=== PATIENT | female | born 1945 | race Caucasian/White ===

== ENCOUNTER → 2016-06-30 16:52 | Outpatient (CLI) | payer MEDICARE, OTHER ==
[2014-02-22 19:24] VITALS: BMI 26.7
[~2016-06-30 16:52] MED LIST: AMITRIPTYLINE H50 MG PO; BAYER CHEWABLE81 MG PO; EVISTA60 MG PO; HYDROCODON-ACE1 EAC9 PO; IMITREX100 MG PO; LOPRESSOR25 MG PO; PAROXETINE HCL10 MG PO; PLAVIX75 MG PO; PREVACID30 MG PO; REQUIP XL2 MG PO; TIAZAC/CARDIZE180 MG PO; TOBRADEX EYE DRO5 ML LEFT EYE; VALIUM5 MG PO
== END | disposition home or self-care (01) ==
LOC: D.MAMMO 14:00
DX: Z12.31 Encounter for screening mammogram for malignant neoplasm of breast (principal)

== ENCOUNTER → 2016-09-01 06:41 | Outpatient (CLI) | payer MEDICARE, OTHER ==
[2014-02-22 19:24] VITALS: BMI 26.7
== END | disposition home or self-care (01) ==
LOC: D.RAD 08-28 08:00
DX: K44.9 Diaphragmatic hernia without obstruction or gangrene (principal)

== ENCOUNTER → 2017-06-11 11:56 | Outpatient (CLI) | payer MEDICARE ==
[2014-02-22 19:24] VITALS: BMI 26.7
== END | disposition home or self-care (01) ==
LOC: D.CT 11:56
DX: K57.30 Diverticulosis of large intestine without perforation or abscess without bleeding (principal); R10.12 Left upper quadrant pain; R10.30 Lower abdominal pain, unspecified

== ENCOUNTER → 2017-07-01 08:12 | Outpatient (CLI) | payer MEDICARE ==
[2014-02-22 19:24] VITALS: BMI 26.7
== END | disposition home or self-care (01) ==
LOC: D.RAD 08:12
DX: K31.84 Gastroparesis (principal); K21.9 Gastro-esophageal reflux disease without esophagitis; Z98.890 Other specified postprocedural states

== ENCOUNTER 2017-07-05 12:58 | Day surgery (SDC) | payer MEDICARE ==
[~2017-07-05] VITALS: Ht 157.5 cm; Wt 71.8 kg
--- NOTE | ~2017-07-05 | OP ---
PATIENT NAME: ANITA RYDER MEDICAL RECORD: [id number] :45 LOCATION:D.OPS ADMISSION DATE: SURGEON: ANITA JORGE MD DATE OF OPERATION: 07/05/2017 PROCEDURE: EGD with balloon dilatation. ENDOSCOPIST: Anita Jorge MD SCOPE: An Olympus video gastroscope and a CRE Microvasive balloon from 26-51-Kixrmj. MEDICATIONS: For the procedure per TIVA. The patient was intubated for this procedure. INDICATIONS FOR THE PROCEDURE: Dysphagia. The patient's workup has included an upper GI with a KUB, which was done on 07/01/2017, this procedure was significant for a moderate hiatal hernia, otherwise unremarkable upper gastrointestinal examination. Of note, the patient has been having dysphagia and her upper GI and previous endoscopy findings are significant for an unraveling Kaley fundoplication, moderate-sized hiatal hernia. The patient had an attempted EGD on the of this month, but we were unable to proceed as she had had a copious amount of retained food in a moderate-sized hiatal hernia. The procedure was aborted and upper GI was done. This film in more detail as below demonstrates a normal esophagus with a normal caliber and normal contour. She does, however, have tertiary contractions. A moderate-size hiatal hernia was present. No significant stricture was seen, but the patient has a functional stricture due to the hiatal hernia with some shortening of the esophagus. She had no extrinsic compression other than the normal impression from the aortic knob, no mucosal or submucosal lesion was identified. She had no evidence of a significant filling defect. The contrast was noted to empty into the stomach without difficulty. A normal mucosal pattern was seen in the stomach. No contrast extravasation. The contrast then emptied into the first portion of the duodenum without difficulty with normal C-loop configuration was noted, normal duodenojejunal mucosa fold pattern was identified. TECHNIQUE: A 2.5 mm barium tablet was then administered and the patient was unable to swallow tablet and continued to cough up the tablet. An EGD with planned balloon dilatation will be done this date. FINDINGS: Informed consent was given. The patient was made comfortable with the above medications. After reaching an adequate level of sedation by slow IV push, the patient was placed on her left side. Of note, the patient was intubated for this procedure. The endoscope was advanced under direct visualization through the posterior pharyngeal area and advanced to the distal esophagus. A functional stricture was seen. We were able to traverse this area into a moderate-sized hiatal hernia and then proceeded through the gastric area to the antrum. No significant inflammation was seen involving the mucosa of the stomach. The duodenal bulb to the second portion was examined and again tissue was fairly normal in appearance. Only a minimal amount of inflammation was seen in the duodenum and also within the stomach and biopsies were not felt to be necessary. OPERATIVE REPORT [id number] ANITA RYDER After the inspection part of the EGD was completed, a CRE microvasive balloon was placed carefully into the stomach proper and the scope was positioned, so that the balloon would dilate the distal esophagus. We advanced the balloon to 57-Gibraltarian and held the balloon in place for 1 minute, no trauma was noted after removal of the balloon. We then reexamined the esophagus, hiatal hernia, all gastric mucosa, and the duodenal mucosa. No trauma or bleeding was seen. The scope was then withdrawn. IMPRESSION: 1. The patient with a functional stricture due to a moderate-sized hiatal hernia. This was seen in the chest and distal esophageal area was successfully dilated to 57-Gibraltarian without any trauma noted. Eventually, the patient will require a hiatal hernia repair and possibly another Kaley fundoplication. 2. Moderate-sized hiatal hernia. 3. Minimal gastritis. 4. Minimal duodenitis. PLAN: The patient should continue her present medications, avoid anti-inflammatory drugs, and follow reflux precautions stringently, both dietary and positional. We will ask her to return to clinic after her upcoming cruise for further discussion as we believe she likely will require a hiatal hernia repair and possibly another Kaley fundoplication. The patient's medications include Protonix 40 mg p.o. daily. TRANSINT:[id number] Voice Confirmation ID: [id number] DOCUMENT ID: [id number] ANITA JORGE MD CC: IRVING SWANN and MAXIME POWERS [id number] DICTATION DATE: 07/05/171713 TECHNICAL SALES ADVISOR: 07/05/172204 [facility] 07/05/17 [place] [id number] [place] [id number]
[2017-07-05] MEDS ORDERED: PROTONIX40 MG PO (14:07)
[2017-07-05] MEDS ORDERED: NEURONTIN 300300 MG PO (14:08)
[2017-07-05] MEDS ORDERED: ULTRAM50 MG PO (14:08)
[2017-07-05 14:18] VITALS: BP 128/72; Ht 157.5 cm; Wt 71.8 kg
[2017-07-05 14:49] LABS: HEMATOCRIT 33.6 % (36.0-48.0); HEMOGLOBIN 11.3 g/dL (12-16); MCH 28.3 pg (26.0-34.0); MCHC 33.6 g/dL (31.0-37.0); MEAN PLATELET VOLUME 11.4 fL (7.4-10.4); RDW 16.8 % (11.5-14.5)
== END 2017-07-05 18:45 | disposition home or self-care (01) ==
LOC: D.OPS 12:58
PROVIDERS: Internal Medicine Gastroenterology
DX: R13.10 Dysphagia, unspecified (principal); K22.2 Esophageal obstruction; K44.9 Diaphragmatic hernia without obstruction or gangrene; K29.70 Gastritis, unspecified, without bleeding; K29.80 Duodenitis without bleeding; Z01.812 Encounter for preprocedural laboratory examination

== ENCOUNTER 2018-08-26 18:25 | Inpatient (IN) | payer MEDICARE ==
[~2018-08-26 18:25] MED LIST changes: +CARDIZEM CD120 MG PO; +NEURONTIN 300300 MG PO; +PROTONIX40 MG PO; -REQUIP XL2 MG PO; +ROPINIROLE HCL2 MG PO; +ULTRAM50 MG PO
[2018-08-26 19:21] LABS: BASOPHILS 0.4 % (0-2); EOSINOPHILS 2.8 % (0-7); HEMATOCRIT 36.7 % (36.0-48.0); HEMOGLOBIN 12.3 g/dL (12-16); LYMPHOCYTES 27.1 % (15-50); MCH 28.6 pg (26.0-34.0); MCHC 33.5 g/dL (31.0-37.0); MCV 85.3 fL (80.0-100.0); MEAN PLATELET VOLUME 11.6 fL (7.4-10.4); MONOCYTES 6.5 % (2-11); NEUTROPHILS 63.2 % (40-80); WBC 5.4 10x3/uL (4.8-10.8)
[2018-08-26 19:26] LABS: PLATELET COUNT 197 10x3/uL (130-400)
[2018-08-26 19:35] LABS: ALBUMIN 3.5 g/dL (3.4-5.0); ALKALINE PHOSPHATASE 99 U/L (46-116); ALT (SGPT) 88 U/L (10-68); BILIRUBIN - TOTAL 0.31 mg/dL (0.2-1.3); CALC OSMOLALITY 281 mosm/kg (275-300); CHLORIDE - SERUM 105 mmol/L (98-107); CREATININE - SERUM 0.9 mg/dL (0.6-1.3); GLUCOSE 105 mg/dL (74-106); POTASSIUM - SERUM 3.5 mmol/L (3.5-5.1); SODIUM 142 mmol/L (136-145); UREA NITROGEN 9 mg/dL (7-18); eGFR NON AFRICAN AMERICAN 65 mL/min (90-120)
[2018-08-26 19:38] LABS: AMYLASE - SERUM 17 U/L (25-115); LIPASE 59 U/L (73-393); TROPONIN-I < 0.017 ng/mL (0.000-0.060)
[2018-08-26 22:36] LABS: APPEARANCE CLEAR (CLEAR); BILIRUBIN NEGATIVE (NEGATIVE); COLOR YELLOW (YELLOW); GLUCOSE NEGATIVE (NEGATIVE); KETONE MODERATE mg/dL (NEGATIVE); NITRITE NEGATIVE (NEGATIVE); PROTEIN NEGATIVE (NEGATIVE); UROBILINOGEN NORMAL (NORMAL)
[2018-08-26 22:38] LABS: BACTERIA FEW /hpf (NONE SEEN); EPITHELIAL CELLS OCC /hpf (0-5); WHITE CELLS - URINE 0-5 /hpf (0-5)
[2018-08-26 23:00] VITALS: BP 106/62
[2018-08-26 23:26] LABS: CKMB 0.9 U/L (0.0-3.6)
[2018-08-27] MEDS ORDERED: PHENERGAN25 M1 PO (00:49)
[2018-08-27] MEDS ORDERED: MOBIC7.5 MG (00:50)
[2018-08-27 01:32] VITALS: BP 109/59; BMI 26.7
[2018-08-27 04:57] VITALS: BP 98/57
[2018-08-27 09:06] VITALS: BP 110/63
[2018-08-27 09:16] LABS: BASOPHILS 0.3 % (0-2); EOSINOPHILS 5.6 % (0-7); HEMATOCRIT 35.5 % (36.0-48.0); HEMOGLOBIN 11.6 g/dL (12-16); LYMPHOCYTES 29.2 % (15-50); MCH 28.2 pg (26.0-34.0); MCHC 32.7 g/dL (31.0-37.0); MCV 86.2 fL (80.0-100.0); MEAN PLATELET VOLUME 10.9 fL (7.4-10.4); MONOCYTES 8.1 % (2-11); NEUTROPHILS 56.8 % (40-80); PLATELET COUNT 168 10x3/uL (130-400); RBC 4.12 10x6/uL (4.00-5.40); RDW 16.1 % (11.5-14.5)
[2018-08-27 09:23] LABS: ANION GAP 7.5 mmol/L (8-16); CALCIUM 8.4 mg/dL (8.5-10.1); CARBON DIOXIDE 31.3 mmol/L (21.0-32.0); CREATININE - SERUM 0.8 mg/dL (0.6-1.3); POTASSIUM - SERUM 3.8 mmol/L (3.5-5.1)
[2018-08-27 09:25] LABS: WBC 3.6 10x3/uL (4.8-10.8)
[2018-08-27 13:53] VITALS: BP 133/69
[2018-08-27 15:10] VITALS: BMI 26.7
[2018-08-27 16:24] VITALS: BP 105/58
[2018-08-27 20:25] VITALS: BP 117/71
[2018-08-28 00:25] VITALS: BP 122/71
[2018-08-28 03:41] VITALS: BP 130/77
[2018-08-28 05:17] LABS: BASOPHILS 0.3 % (0-2); HEMATOCRIT 34.4 % (36.0-48.0); HEMOGLOBIN 11.2 g/dL (12-16); LYMPHOCYTES 34.2 % (15-50); MCH 28.1 pg (26.0-34.0); MCHC 32.6 g/dL (31.0-37.0); MCV 86.2 fL (80.0-100.0); MEAN PLATELET VOLUME 11.8 fL (7.4-10.4); MONOCYTES 9.2 % (2-11); NEUTROPHILS 48.3 % (40-80); PLATELET COUNT 179 10x3/uL (130-400); RBC 3.99 10x6/uL (4.00-5.40); RDW 16.2 % (11.5-14.5); WBC 3.3 10x3/uL (4.8-10.8)
[2018-08-28 05:31] LABS: ANION GAP 9.9 mmol/L (8-16); CALCIUM 8.3 mg/dL (8.5-10.1); CREATININE - SERUM 0.8 mg/dL (0.6-1.3); POTASSIUM - SERUM 3.9 mmol/L (3.5-5.1)
[2018-08-28 09:08] VITALS: BP 126/72
[2018-08-28] MEDS ORDERED: LEVAQUIN750 MG PO (10:42)
[2018-08-28] MEDS ORDERED: FLAGYL500 MG PO (10:42)
--- NOTE | 2018-09-01 10:49 | MORECARE ---
CASE MANAGEMENT DISCHARGE SUMMARY PATIENT: RAFAEL RYDER UNIT: [id number] ADM DATE: 08/26/18 AGE: 73 : 45 SEX: F ROOM/BED: D[facility] AUTHOR: DIXON DEE PHYSICIAN: REFERRING PHYSICIAN: KEV JORDAN MD DATE OF SERVICE: 09/01/18 Discharge Plan Patient Name: RAFAEL RYDER Facility: [facility]:[place] : 1945 Planned Disposition: Anticipated Discharge Date: Discharge Date: 08/28/2018 Expected LOS: 0 Initial Reviewer: [email or web address] Initial Review Date: 09/01/2018 Generated: 09/01/18 11:49 am Patient Name: RAFAEL RYDER Page [id number] at 1049 All edits/amendments must be made on the electronic document DICTATION DATE: 09/01/18 1048 FI[employer] INSUR[employer] SALES MANAGER: BAL 09/01/18 1048 RPT#: [id number] DC DATE:08/28/18 STATUS: DIS IN [facility] [address] [place] [address] END OF REPORT
== END 2018-08-28 12:03 | disposition home or self-care (01) | DRG 392 ==
LOC: D.ER 18:25 → D.MS 23:02
PROVIDERS: Emergency Medicine; ADMIT Internal Medicine Nephrology
DX: K57.32 Diverticulitis of large intestine without perforation or abscess without bleeding (principal); K44.9 Diaphragmatic hernia without obstruction or gangrene; K21.9 Gastro-esophageal reflux disease without esophagitis; F34.1 Dysthymic disorder; F41.8 Other specified anxiety disorders

== ENCOUNTER 2018-09-15 08:18 | Day surgery (SDC) | payer MEDICARE ==
[~2018-09-15] VITALS: Ht 157.5 cm; Wt 66.4 kg
--- NOTE | ~2018-09-15 | OP ---
PATIENT NAME: ANITA RYDER MEDICAL RECORD: [id number] :45 LOCATION:D.OPS ADMISSION DATE: SURGEON: ANITA JORGE MD DATE OF OPERATION: 09/15/2018 PROCEDURE: EGD with minimal balloon dilatation, EGD with biopsy. GYNECOLOGICAL ASSISTANT: Anita Jorge MD SCOPE: Olympus video gastroscope. MEDICATIONS: Per TIVA anesthesia. INDICATION FOR THE PROCEDURE: The patient states that she has had ongoing dysphagia, most pronounced at the distal esophageal area as well as symptoms of gastroesophageal reflux disease. Additionally, she has nausea and vomiting as well as diarrhea. She tells me that her vomiting is more of regurgitation and this is occurring after meals with the food traveling down the esophagus, but then coming back up more as a regurgitation due to what she feels is a tightness at the end of the distal esophageal area. The patient is status post a redo Kaley fundoplication also with repair of her gastrostomy, lysis of adhesions. This was done on 08/19/[address] Jules. The patient will have an EGD this date. FINDINGS AND DESCRIPTION OF PROCEDURE: Informed consent was given. The patient was made comfortable with the above medications. After reaching an adequate level of sedation by slow IV push, the patient was placed on her left side. The endoscope was then advanced under direct visualization through the posterior pharyngeal area and advanced to the distal esophagus. Only minimal stricturing was noted in this area and we gently dilated this area to 54-Brazilian. On entering the stomach, the patient has what appears to be recurrence of the same hiatal hernia and this may be playing more of a role with her regurgitation then a perceived stricture. Within this hernia, she had a polyp that was biopsied and sent to pathology for review. The polyp was 0.25 cm in size. We then proceeded through the area to the antrum where only minimal inflammation was seen and a biopsy was taken looking for the presence of Helicobacter pylori. We did retroflex and the Kaley repair is functioning fairly well on a retroflex view with the tissue closed against the gastroscope. In the duodenal bulb to the second portion, only minimal inflammation was noted and biopsies were obtained. The scope was then withdrawn. IMPRESSION: 1. Very mild distal esophagitis, biopsied. 2. Minimal stricture in the distal esophageal area, gently dilated to 54-Brazilian. I really believe the patient's perception of food being regurgitation is coming more from the hiatal hernia, which appears much more narrowed. This will be evaluated with a barium test. 3. Gastric polyp of 0.25 cm, biopsied. 4. Very mild gastritis throughout the entire stomach. No ulcers, no erosions. Biopsies were taken at the antral area looking for H. pylori. 5. Mild duodenitis in the duodenal bulb and second portion. Again, no ulcers, no erosions. Biopsy taken in the second part of the duodenum as the patient has diarrhea. We are looking for eosinophilic gastroenteritis, celiac sprue. No evidence of Crohn's disease. We will check for parasites. OPERATIVE REPORT [id number] ANITA RYDER PLAN: 1. Caution with anti-inflammatory drugs. 2. We will check a barium swallow to evaluate motility, look for hiatal hernia. 3. Famotidine 20 mg p.o. b.i.d., prescription given. TRANSINT:[id number] Voice Confirmation ID: [id number] DOCUMENT ID: [id number] ANITA JORGE MD CC: IRVING SWANN [id number] DICTATION DATE: 09/15/18 1327 DEVELOPMENT TECHNICIAN: 09/15/18 1420 [facility] [address] [place] [id number]
[~2018-09-15 08:18] MED LIST changes: +FLAGYL500 MG PO; +LEVAQUIN750 MG PO; +MOBIC7.5 MG; +PHENERGAN25 M1 PO
[2018-09-15 08:41] LABS: BASOPHILS 0.6 % (0-2); EOSINOPHILS 6.5 % (0-7); HEMATOCRIT 36.9 % (36.0-48.0); HEMOGLOBIN 12.3 g/dL (12-16); IMMATURE GRANULOCYTES 0.2 % (0-5); LYMPHOCYTES 30.4 % (15-50); MCH 28.5 pg (26.0-34.0); MCHC 33.3 g/dL (31.0-37.0); MCV 85.4 fL (80.0-100.0); MEAN PLATELET VOLUME 10.4 fL (7.4-10.4); MONOCYTES 4.5 % (2-11); NEUTROPHILS 57.8 % (40-80); RBC 4.32 10x6/uL (4.00-5.40); WBC 5.1 10x3/uL (4.8-10.8)
[2018-09-15 08:43] LABS: PLATELET COUNT 227 10x3/uL (130-400)
[2018-09-15 08:56] LABS: ANION GAP 12.4 mmol/L (8-16); CALCIUM 8.9 mg/dL (8.5-10.1); CARBON DIOXIDE 28.8 mmol/L (21.0-32.0); CREATININE - SERUM 0.9 mg/dL (0.6-1.3); POTASSIUM - SERUM 4.2 mmol/L (3.5-5.1)
--- NOTE | 2018-09-15 11:30 | NUR ---
PT HAS HX OF RESTLESS LEG SYNDROME AND IS REQUESTING MEDICATION FOR THIS. SPOKE WITH DR PHILLIP AND ORDER REC'D FOR REQUIP 3MG X1.
[2018-09-15 12:05] VITALS: BP 115/66; Ht 157.5 cm; Wt 66.4 kg
--- NOTE | 2018-09-15 13:24 | NUR ---
REC'D FROM GI LAB BY Robert CONNOLLY RN.
--- NOTE | 2018-09-15 13:55 | NUR ---
ASSUMED CARE OF PATIENT. RELATES SHE HAD NOT REC'D THE REQUIP AT THIS TIME. PHARMACY HAD BEEN NOTIFIED OF THE ORDER PRIOR TO 121. PHARMACY CONTACTED AGAIN. FRIEND AT BEDSIDE.
--- NOTE | 2018-09-15 14:10 | NUR ---
SHANE KINNEY SERVED.
--- NOTE | 2018-09-15 14:25 | NUR ---
TOLERATED FL TRAY. REQUIP STILL NOT DELIVERED TO FLOOR. CALLED AGAIN AND PHARMACY RELATED WOULD PRINT ANOTHER LABEL AND DELIVER TO FLOOR.
--- NOTE | 2018-09-15 14:30 | NUR ---
REQUIP 3MG PO ADMINISTERED PER ORDRES.
--- NOTE | 2018-09-15 14:42 | NUR ---
WRITTEN AND VERBAL DC INST. GIVEN TO PATIENT. VERBALIZED UNDERSTANDING. BARIUM SWALLOW WAS SCHEDULED FOR PATIENT.
--- NOTE | 2018-09-15 14:50 | NUR ---
DC'D HOME WITH FRIEND VIA PRIVATE VEHICLE. TAKEN TO VEHICLE VIA WC. STABLE AT TIME OF DC.
== END 2018-09-15 14:50 | disposition home or self-care (01) ==
LOC: D.OPS 08:18
PROVIDERS: Anesthesiology; ATTEND Internal Medicine Gastroenterology
DX: K20.9 Esophagitis, unspecified (principal); K22.2 Esophageal obstruction; K44.9 Diaphragmatic hernia without obstruction or gangrene; K29.80 Duodenitis without bleeding; K29.70 Gastritis, unspecified, without bleeding; K31.7 Polyp of stomach and duodenum; Z01.812 Encounter for preprocedural laboratory examination

== ENCOUNTER 2019-02-12 08:44 | Emergency (ER) | payer MEDICARE ==
[~2019-02-12] VITALS: Ht 157.5 cm; Wt 68.2 kg
[2019-02-12 08:46] VITALS: Ht 157.5 cm; Wt 68.2 kg
[2019-02-12] MEDS ORDERED: PREDNISONE20 MG PO (09:46)
[2019-02-12] MEDS ORDERED: TYLENOL W/CODEI1 TAB PO (09:47)
[2019-02-12 10:10] VITALS: BP 130/71
== END 2019-02-12 10:10 | disposition home or self-care (01) ==
LOC: D.ER 08:44
DX: M54.5 Low back pain (principal)

== ENCOUNTER 2020-09-13 07:56 | Day surgery (SDC) | payer MEDICARE ==
[~2020-09-13] VITALS: Ht 157.5 cm; Wt 63.6 kg
--- NOTE | ~2020-09-13 | OP ---
PATIENT NAME: RAFAEL RYDER MEDICAL RECORD: [id number] :45 LOCATION:D.OPS ADMISSION DATE: SURGEON: HUSAM KENDALL MD DATE OF OPERATION: 09/13/2020 PROCEDURE: EGD and colonoscopy. PREOPERATIVE DIAGNOSES: Abdominal pain, dysphagia, diarrhea. MEDICATION: Propofol per anesthesia. DESCRIPTION OF EGD PROCEDURE: Upper endoscopy was performed. The endoscope was advanced through the mouth and advanced to the second part of the duodenum. The proximal and mid esophagus were normal. The GE junction was measured at 32 cm from the incisors. There was a 3-cm hiatal hernia visualized and there was old suture material within the hiatal hernia. The patient does have a history of Kaley fundoplication. In the distal esophagus was an esophageal stricture, this was dilated with a 16, 17 and 18-millimeter balloon. The duodenum was normal. There was mild gastritis. Biopsies were taken. The patient tolerated the procedure well. FINAL DIAGNOSES: A 3-cm hiatal hernia, old suture material in the hiatal hernia, distal esophageal stricture dilated with a 16, 17 and 18-millimeter balloon. Evidence of previous Kaley fundoplication. PLAN: Check histology results. Advance diet. Continue proton pump inhibitor. Based on symptoms, we would recommend repeat EGD with dilation in 3 to 4 months with a larger balloon if the patient does not have resolution of her dysphagia. DESCRIPTION OF COLONOSCOPY PROCEDURE: Colonoscopy was performed. The colonoscope was inserted through the rectum and advanced to the cecum, identified by the ileocecal valve and the appendiceal orifice. There were a few sigmoid diverticula visualized. There was a 2-mm cecal polyp removed with cold biopsy forceps. Random colon biopsies and stool samples were taken. The patient tolerated the procedure well. FINAL DIAGNOSES: Small cecal polyp removed with cold biopsy forceps. Random colon biopsies taken and stool samples taken, few sigmoid diverticula. PLAN: Advance diet. Return to GI office to check biopsy results. TRANSINT:[id number] Voice Confirmation ID: [id number] DOCUMENT ID: [id number] HUSAM KENDALL MD CC: [id number] DICTATION DATE: 09/13/20 1125 LUMBER STACKER DRIVER: 09/13/20 1503 [facility] 09/13/20 [place] [address]
[~2020-09-13 07:56] MED LIST changes: +PREDNISONE20 MG PO; +TYLENOL W/CODEI1 TAB PO
[2020-09-13 08:11] LABS: HEMATOCRIT 42.3 % (36.0-48.0); HEMOGLOBIN 13.9 g/dL (12-16); MCHC 32.9 g/dL (31.0-37.0); MCV 91.2 fL (80.0-100.0); MEAN PLATELET VOLUME 11.5 fL (7.4-10.4); RBC 4.64 10x6/uL (4.00-5.40); RDW 13.8 % (11.5-14.5); WBC 5.1 10x3/uL (4.8-10.8)
[2020-09-13 09:55] VITALS: Ht 157.5 cm; Wt 63.6 kg
--- NOTE | 2020-09-13 13:20 | NUR ---
PT REPORTS SIGNIFICANT DECREASE IN RESTLESS LEGS. IV D/C'D WITH CANNULA INTACT, PRESSURE HELD, AND DRSG PLACED. DISCHARGEINSTRUCTIONS GIVEN AND PT VERBALIZED AN UNDERSTANDING. DR. KENDALL HS BEEN AT BEDSIDE.
[2020-09-16 19:08] LABS: OVA + PARASITE EXAM Final report (())
== END 2020-09-13 12:20 | disposition home or self-care (01) ==
LOC: D.OPS 07:56
PROVIDERS: Anesthesiology; ATTEND Internal Medicine Gastroenterology
DX: R10.84 Generalized abdominal pain (principal); R19.7 Diarrhea, unspecified; R06.00 Dyspnea, unspecified; R13.10 Dysphagia, unspecified; K63.5 Polyp of colon; K22.2 Esophageal obstruction; R11.2 Nausea with vomiting, unspecified